=== PATIENT | female | born 1955 | race Caucasian/White ===

== ENCOUNTER 2018-05-07 12:45 | Inpatient (IN) | payer BC, MEDICARE ==
[~2018-05-07] VITALS: Ht 165.1 cm; Wt 60.3 kg
--- NOTE | 2018-05-07 12:47 | NUR ---
BIBRA78, DIZZY, BLURRED VISION, L FACE DROOP, L ARM AND LEG WEAKNESS LAST WELL KNOWN 12PM. DR. NINA AT . CODE STROKE ACTIVATED.
--- NOTE | 2018-05-07 12:53 | NUR ---
PT TO CT VIA [facility].
--- NOTE | 2018-05-07 12:54 | NUR ---
CALLED TELE STROKE, EXPECTING CALL FROM NEURO MD MORALES
[2018-05-07] MEDS ORDERED: IOHEXOL-350 100 ML VIAL IV ONE (12:55)
[2018-05-07] MEDS ORDERED: CT SWABBABLE VALVE TRANS SET 1 EA INFUS.SET MC ONE (12:55)
[2018-05-07] MEDS ORDERED: IV NS 0.9% 250 ML IV ONE (12:55)
--- NOTE | 2018-05-07 13:35 | NUR ---
PT BACK FROM CT. ABLE TO DRINK WATER W/O DIFFICULTY. AAOX3, SLURRED SPEECH, LT ARM & LT LEG DRIFTING. DENIES CP, SOB, DIZZINESS, HERNANDEZ, N/V AT THIS TIME. AWAITING NEUROLOGIST TO SPEAK TO PT VIA TELE STROKE ROBOT. PLACED ON CONCRETE INSPECTOR & WILL CONT TO MONITOR.
[2018-05-07 13:39] LABS: BASOPHILS # (AUTO) 0.1 /CMM (0.0-0.2); BASOPHILS % (AUTO) 1.3 % (0.0-2.0); EOSINOPHILS % (AUTO) 1.7 % (0.0-6.0); HEMATOCRIT 46 % (33-45); HEMOGLOBIN 15.5 g/dL (11.5-14.8); LYMPHOCYTES # (AUTO) 1.7 /CMM (0.8-4.8); LYMPHOCYTES % (AUTO) 20.3 % (20.0-44.0); MEAN CORPUSCULAR HGB CONC 34 g/dl (31.0-36.0); MEAN CORPUSCULAR VOLUME 100 fL (82-100); MONOCYTES # (AUTO) 0.7 /CMM (0.1-1.30); MONOCYTES % (AUTO) 8.3 % (2.0-12.0); NEUTROPHILS # (AUTO) 5.6 /CMM (1.8-8.9); NEUTROPHILS % (AUTO) 68.4 % (43.0-81.0); PLATELET COUNT (AUTO) 320 /CMM (150-450); RED BLOOD CELL COUNT(AUTO) 4.59 MIL/uL (4.0-5.2); WHITE BLOOD COUNT (AUTO) 8.2 K/uL (4.3-11.0)
[2018-05-07] MEDS ORDERED: hydrALAZINE HCL IV 20 MG VIAL ONE (13:44)
[2018-05-07 13:48] LABS: CALCIUM, SERUM 8.8 mg/dL (8.5-10.1); CARBON DIOXIDE 29 mmol/L (21-32); CHLORIDE 100 mmol/L (98-107); CREATININE 0.9 mg/dL (0.6-1.3); GLUCOSE 92 mg/dL (74-106); POTASSIUM 3.7 mmol/L (3.5-5.1); SODIUM SERUM 135 mmol/L (136-145); UREA NITROGEN, BLOOD 7 mg/dL (7-18)
--- NOTE | 2018-05-07 13:48 | NUR ---
MEDICATED FOR ELEVATED BP PER ERMD ORDER, PT MARCELLE WELL.
[2018-05-07] MEDS ORDERED: hydrALAZINE HCL IV 20 MG VIAL IV ONE (14:00)
[2018-05-07] MEDS ORDERED: ASPIRIN 325 MG TABLET PO ONE (14:00)
[2018-05-07 14:09] LABS: CHOLESTEROL 258 mg/dL (<200); HDL CHOLESTEROL 60 mg/dL (40-60); LDL 183 mg/dL (0-99); TRIGLYCERIDES 163 mg/dL (30-150)
[2018-05-07] MEDS ORDERED: ASPIRIN 325 MG TABLET ONE (14:21)
--- NOTE | 2018-05-07 14:24 | NUR ---
CALLED NURSING SUP REQUESTED TELE BED
--- NOTE | 2018-05-07 15:00 | NUR ---
PT ABLE TO LIFT LT ARM & HOLD IT FOR MORE THAT 10 SECS, DR. NINA WITNESSED IT.
--- NOTE | 2018-05-07 15:05 | NUR ---
ADMIT TO ROOM 118-2 DX HYPERTENSION ACCEPTING ASHLEY BARNETT NP
--- NOTE | 2018-05-07 15:32 | NUR ---
REPORT GIVEN TO ROSS ALBA FOR CONT OF CARE.
--- NOTE | 2018-05-07 16:00 | NUR ---
RN ADMITTING NOTES RECEIVED PATIENT FROM ED VIA ROXANE. BEDSIDE REPORT FROM ANTONIO. PT ALERT AND AGITATED REFUSING TO HAVE PICTURES AND PHOTOS TAKEN. CURSING AT STAFF . PATIENT REFUSING TO ANSWER QUESTIONS IN REGARDS AND NHISS QUESTIONS. ON VISUAL INSPECTION PAITENT SLURRING WORDS AND LEFT SIDED FACIAL DROP. STATES SHE FELL DOWN STAIRS A COUPLE OF DAYS AGO AND HIT HEAD THAT S WHY HER FACE IS LIKE THIS. SON AT BEDSIDE VERY CONCERNED AND HELPFUL WITH ANSWERING QUESTIONS. VS 98.1 HR 103 RR 20 O2 98% ON ROOM AIR BP 157/114. DR BARNETT NOTIFIED OF PATIENT ARRIVAL ON UNIT
--- NOTE | 2018-05-07 17:00 | NUR ---
SEED SORTER NOTES DR ENRIQUEZ AT BEDSIDE TO EVALUATE PATIENT. AWAITING ORDERS
[2018-05-07] MEDS ORDERED: ACETAMINOPHEN 325 MG TABLET PO PRN ×2 (17:30)
[2018-05-07] MEDS: BLOOD SUGAR DIAGNOSTIC 1 EACH STRIP IN SCH ×2 (17:30→21:36)
[2018-05-07] MEDS: ONDANSETRON HCL/PF 4 MG/2 ML VIAL IV PRN (18:09)
[2018-05-07] MEDS: MORPHINE SULFATE INJ 2 MG/ML DISP.SYRIN IV PRN ×2 (18:09→22:30)
[2018-05-07 18:25] LABS: THYROID STIMULATING HORMONE 122.23 uIU/mL (0.358-3.74)
[2018-05-07] MEDS: IV NS 0.9% 1,000 ML IV PRN (18:32)
--- NOTE | 2018-05-07 18:42 | NUR ---
FUR REPAIR INSPECTOR NOTES PT SCRATCHED LAC IV REMOVED CATH INTACT #18. REPLACED IV IN L HAND #20 GAUGE GOOD BLOOD RETURN NS RUNNING @75ML/HR MORPHINE 2 MG AND ZOFRAN GIVEN
--- NOTE | 2018-05-07 19:22 | NUR ---
MARINE DESIGNER CLOSING NOTES BEDSIDE REPORT GIVEN PT A/O X2-3 C/O PAIN TO NECK AND BACK MD AWARE . MORPHINE 2 MG GIVEN X1. NO S/S OR SYMPTOMS OF RESPIRATORY DISTRESS NOTED. PT SON AT BEDSIDE . PT REFUSES TO ANSWER QUESTIONS HISTORY VAGUE. SAFETY PRECAUTIONS IN PLACE BED IN LOW POSITION CALL LIGHT WITHIN REACH. WILL ENDORSE TO NOC
--- NOTE | 2018-05-07 19:40 | NUR ---
RN NOTES, RECEIVED PATIENT, BREATHING EVEN AND UNLABORED AT ROOM AIR, NO SOB/ACUTE DISTRESS NOTED AT THIS TIME, SON AT BEDSIDE, ENDORSED BY PRIOR NURSE THAT PATIENT PULLED IVS AND PULLED OUT BEDOYA CATHETER, UPON ASSESSMENT NOTED PATIENT RESTLESSNESS AND YELLING C/O PAIN, MORPHINE ADMINISTERED BY PRIOR NURSE EARLIER, PATIENT ASKING FOR PATCH FOR NECK PAIN, WILL CONTACT MD FOR NEW ORDERED, NOTED PATIENT WITH LEFT SIDED FACIAL DROP, AND RIGHT FACE BRUISE FROM S/P FALL, CALL LIGHT W/I REACH, S/R OF BED ORDERED, WILL CONTINUE TO MONITOR CLOSELY.
[2018-05-07 20:00] VITALS: BP 168/90
--- NOTE | 2018-05-07 20:00 | NUR ---
RN NOTES, CALLED MALI INDEPENDENT INSURANCE ADJUSTER TO REPORT PATIENT C/O NECK PAIN AND ASKING FOR TRANSDERMAL PATCH, AWAITING FIR CALL BACK.
--- NOTE | 2018-05-07 20:30 | NUR ---
RN NOTES, MALI GORE MAKER REPLIED WITH NEW ORDER FOR LIDOCAINE TD PATCH 5% 12HRS ON AND 12 HRS OFF, NOTED AND CARRIED OUT, WILL ADMINISTERED ORDERED.
[2018-05-07] MEDS: LIDOCAINE 5% (PATCH) 1 EA PATCH TP SCH (20:47)
[2018-05-07] MEDS: ENOXAPARIN SODIUM 40 MG/0.4 ML DISP.SYRIN SQ SCH (20:49)
[2018-05-07] MEDS: SIMVASTATIN 40 MG TABLET PO SCH (21:29)
[2018-05-08] VITALS: BP 158/92
[2018-05-08] MEDS: MORPHINE SULFATE INJ 2 MG/ML DISP.SYRIN IV PRN (02:47)
--- NOTE | 2018-05-08 04:25 | NUR ---
RN NOTES, SARAY SAMSON TUBE LANCER THAT PATIENT IS TRYING TO GET UP FROM BED WITHOUT ASSISTANCE, AND AGITATED THROUGHOUT THE NIGHT, TRYING TO PULL TUBINGS, MEDICATION IS BEING ADMINISTERED ORDERED, AND MD REPLIED WITH NEW ORDER FOR SITTER 1:1, NOTED AND CARRIED OUT.
[2018-05-08] MEDS: hydrALAZINE HCL IV 20 MG VIAL IV PRN ×2 (04:56→21:27)
--- NOTE | 2018-05-08 05:00 | NUR ---
RN NOTES, AFTER THE PRN ADMINISTRATION OF HYDRALAZINE, BP NOTED 170/100, WILL CONTINUE TO MONITOR CLOSELY.
[2018-05-08] MEDS: ONDANSETRON HCL/PF 4 MG/2 ML VIAL IV PRN (05:35)
[2018-05-08] MEDS: LIDOCAINE 5% (PATCH) 1 EA PATCH TP SCH (06:00)
--- NOTE | 2018-05-08 06:00 | NUR ---
RN NOTES, PATIENT REMOVED THE PATCH LAST NIGHT AND THREW IT AWAY, AND IS NOT BEING IN PLACED, PATIENT ASKING FOR ANOTHER PATCH, CALLED PHARMACY AND OK TO REMOVE ANOTHER PATCH FROM OMNICELL, WILL BE ON AT 0600 AND OFF AT 1800 TODAY.
--- NOTE | 2018-05-08 06:28 | NUR ---
RN NOTES, CALLED MD MALI CLASSROOM INSTRUCTIONAL AIDE TO REPORT THAT PATIENT CONTINUE C/O NECK PAIN, AND RECEIVED A NEW ORDER FOR DILAUDID 1MG Q4HRS PRN AND CT SCAN WITHOUT CONTRASTS FOR NECK, NOTED AND CARRIED OUT.
[2018-05-08 06:29] LABS: APPEARANCE,URINE CLEAR (CLEAR); BILIRUBIN,URINE NEGATIVE (NEGATIVE); BLOOD, URINE 3+ Ery/uL (NEGATIVE); COLOR,URINE YELLOW (YELLOW); KETONES,URINE NEGATIVE (NEGATIVE); LEUKOCYTE ESTERASE ,URINE NEGATIVE (NEGATIVE); NITRITE, URINE POSITIVE (NEGATIVE); PROTEIN,URINE NEGATIVE (NEGATIVE); UGLUCOSE NEGATIVE (NEGATIVE); UROBILINOGEN,URINE 0.2 EU/dL (0.2)
[2018-05-08 06:36] LABS: BACTERIA,URINE Many /HPF (None Seen); SQUAMOUS EPITHELIAL CELL,UR Few /HPF (None Seen); WBC,URINE NONE SEEN /HPF (0-3)
[2018-05-08] MEDS: HYDROMORPHONE 1 MG/1 ML DISP.SYRIN IV PRN (06:48)
--- NOTE | 2018-05-08 07:00 | NUR ---
RN NOTES, PATIENT CONTINUE YELLING AND RESTLESSNESS, SON AT BEDSIDE, DILAUDID ADMINISTERED ORDERED, WILL HAVE CT SCAN FOR NECK, AND 1:1 SITTER, CALL LIGHT W/I REACH, WILL ENDORSE CONTINUITY OF CARE TO ONCOMING NURSE. TO MONITOR CLOSELY.
[2018-05-08] MEDS: PANTOPRAZOLE 40 MG TABLET.DR PO SCH (07:30)
--- NOTE | 2018-05-08 07:30 | NUR ---
RN NOTES RECEIVED PATIENT IN BED, LETHARGIC, CONFUSION WITH COMBATIVE BEHAVIOR NOTED WHEN AWAKE, WITH BRUISE ON THE LEFT CHEEKS. BREATHING EVEN AND UNLABORED, ON ROOM AIR, NO SOB NOTED AT THIS TIME, SINUS RHYTHM ON THE MONITOR HR AT THE 80'S. SKIN IS SCALY DRY, IV ACCESS ON THE LEFT HAND G 20: IN PLACE AND INTACT, DRESSING CDI, PATENT ON FLUSHING. BEDOYA CATHETER IN PLACE, DRAINING WELL TO CLEAR YELLOW URINE. SITTER AND SON AT BED SIDE, SAFETY MEASURES OBSERVED AND MAINTAINED, BED LOW AND LOCK POSITION, HOB ELEVATED TO 30 DEGREE, CALL LIGHT PLACED WITHIN REACH, WILL CONTINUE TO MONITOR PATIENT
[2018-05-08 08:00] VITALS: BP 153/83
[2018-05-08 08:40] LABS: BASOPHILS # (AUTO) 0.1 /CMM (0.0-0.2); BASOPHILS % (AUTO) 0.7 % (0.0-2.0); EOSINOPHILS % (AUTO) 0.4 % (0.0-6.0); HEMATOCRIT 45 % (33-45); HEMOGLOBIN 15.2 g/dL (11.5-14.8); LYMPHOCYTES # (AUTO) 1.5 /CMM (0.8-4.8); LYMPHOCYTES % (AUTO) 10.9 % (20.0-44.0); MEAN CORPUSCULAR HGB CONC 34 g/dl (31.0-36.0); MEAN CORPUSCULAR VOLUME 100 fL (82-100); MONOCYTES # (AUTO) 1.1 /CMM (0.1-1.30); MONOCYTES % (AUTO) 8.1 % (2.0-12.0); NEUTROPHILS % (AUTO) 79.9 % (43.0-81.0); PLATELET COUNT (AUTO) 337 /CMM (150-450); RED BLOOD CELL COUNT(AUTO) 4.49 MIL/uL (4.0-5.2); WHITE BLOOD COUNT (AUTO) 13.7 K/uL (4.3-11.0)
[2018-05-08] MEDS: IV NS 0.9% 1,000 ML IV PRN ×2 (08:42→21:41)
[2018-05-08 08:49] LABS: CALCIUM, SERUM 8.9 mg/dL (8.5-10.1); CREATININE 0.9 mg/dL (0.6-1.3); POTASSIUM 3.5 mmol/L (3.5-5.1)
--- NOTE | 2018-05-08 08:56 | NUR ---
PT UNABLE TO HOLD STILL FOR CT NECK, PER RN. RN WILL CALL BACK WHEN PT IS READY.
[2018-05-08] MEDS: ASPIRIN EC 325 MG TABLET.DR PO SCH (09:00)
--- NOTE | 2018-05-08 09:00 | NUR ---
RN NOTES PATIENT WAS NOT GIVEN MEDICATION AND WAS NOT FEED NEITHER DUE TO PATIENT LETHARGIC, S/P DILAUDID ADMINISTRATION FROM THE PHOTONICS ENGINEERING TECHNICIAN NURSE. PATIENT NOT FEED WELL FOR ASPIRATION PRECAUTION
[2018-05-08] MEDS: BLOOD SUGAR DIAGNOSTIC 1 EACH STRIP IN SCH ×4 (09:49→21:07)
[2018-05-08] MEDS ORDERED: LEVOTHYROXINE INJ 100 MCG VIAL IV ONE (11:00)
[2018-05-08] MEDS ORDERED: LORAZEPAM INJ 2 MG/ML VIAL IV PRN (11:00)
--- NOTE | 2018-05-08 13:00 | NUR ---
RN NOTES OBTAINED ORDER FOR BILATERAL SOFT RESTRAINTS. ORDER NOTED AND CARRIED WILL MONITOR PATIENT CLOSELY
--- NOTE | 2018-05-08 13:00 | NUR ---
RN NOTES PATIENT FULLY AWAKE AT THIS TIME, WAS TRYING TO GET OUT OF BED AND WAS TRYING TO PULL OUT LINES. WILL INFORMED MD Addendum: 05/10/18 at 1810 by HANANE LÓPEZ RN LATE ENTRY: RADIOLOGY DEPARTMENT CALLED FOR PATIENT SCHEDULED MRI OF THE NECK. BUT PATIENT RESTLESS AT THIS TIME AND WAS NOT ABLE TO STAY STILL
[2018-05-08 16:00] VITALS: BP 140/80
--- NOTE | 2018-05-08 17:00 | NUR ---
RN NOTES PATIENT NOT ABLE TOTAKE MEDICINE DUE TO PATIENT DEEPLY ASLEEP S/P PRN ATIVAN 1MG IV ADMINISTRATION FOR RESTLESSNESS.
--- NOTE | 2018-05-08 19:27 | NUR ---
RN NOTES ENDORSED PATIENT FOR CONTINUITY OF CARE. NO0 ACUTE CHANGES WITHIN THE SHIFT. ALL NURSING NEEDS ATTENDED AND MET. SAFETY MEASURES IN PLACE AT ALL TIMES. SITTER AT BED SIDE.
--- NOTE | 2018-05-08 19:55 | NUR ---
RN Notes Seen by Dr Branch, neurologist, patient is very uncooperative, restless and agitated in bed. New order received, Seroquel 25 mg tab po every 12 hours PRN for agitation, noted and carried out. Will continue to monitor patient.
[2018-05-08] MEDS: SIMVASTATIN 40 MG TABLET PO SCH (21:26)
[2018-05-08] MEDS: ENOXAPARIN SODIUM 40 MG/0.4 ML DISP.SYRIN SQ SCH (21:26)
--- NOTE | 2018-05-08 21:27 | NUR ---
RN Notes Patient BP was noted elevated even patient is calm and quiet, BP 194/115, HR 119/min. Hydralazine 20 mg IVP given. Will continue to monitor pt.
--- NOTE | 2018-05-08 22:30 | NUR ---
RN Notes BP rechecked 158/92, HR 106/min. Will continue to monitor patient.
[2018-05-08] MEDS: QUETIAPINE FUMARATE 25 MG TABLET PO PRN (22:55)
--- NOTE | 2018-05-08 22:55 | NUR ---
RN Notes Patient is very restless and agitated at this time, hitting the sitter and pulling lines. Seroquel 25 mg tab given po and tolerated well. Will continue to monitor patient.
[2018-05-09] MEDS: BLOOD SUGAR DIAGNOSTIC 1 EACH STRIP IN SCH ×4 (06:31→21:38)
[2018-05-09 06:46] LABS: BASOPHILS # (AUTO) 0.1 /CMM (0.0-0.2); BASOPHILS % (AUTO) 0.4 % (0.0-2.0); EOSINOPHILS % (AUTO) 0.3 % (0.0-6.0); HEMATOCRIT 45 % (33-45); HEMOGLOBIN 15.7 g/dL (11.5-14.8); LYMPHOCYTES # (AUTO) 1.5 /CMM (0.8-4.8); LYMPHOCYTES % (AUTO) 10.8 % (20.0-44.0); MEAN CORPUSCULAR HGB CONC 35 g/dl (31.0-36.0); MEAN CORPUSCULAR VOLUME 98 fL (82-100); MONOCYTES # (AUTO) 1.1 /CMM (0.1-1.30); MONOCYTES % (AUTO) 7.9 % (2.0-12.0); NEUTROPHILS # (AUTO) 11.4 /CMM (1.8-8.9); NEUTROPHILS % (AUTO) 80.6 % (43.0-81.0); PLATELET COUNT (AUTO) 310 /CMM (150-450); RED BLOOD CELL COUNT(AUTO) 4.59 MIL/uL (4.0-5.2); WHITE BLOOD COUNT (AUTO) 14.2 K/uL (4.3-11.0)
[2018-05-09 06:49] LABS: ALBUMIN 4.1 g/dL (3.4-5.0); BILIRUBIN,TOTAL 0.7 mg/dL (0.2-1.0); CALCIUM, SERUM 8.7 mg/dL (8.5-10.1); CREATININE 0.7 mg/dL (0.6-1.3); MAGNESIUM 2.3 mg/dL (1.8-2.4); PHOSPHORUS 3.1 mg/dL (2.5-4.9); POTASSIUM 3.2 mmol/L (3.5-5.1); TOTAL PROTEIN, SERUM 7.5 g/dL (6.4-8.2)
--- NOTE | 2018-05-09 07:00 | NUR ---
MS RN OPENING NOTES RECEIVED PT IN BED, HOB ELEVATED 30 DEG. SITTER AT BEDSIDE. PT AGITATED, CRYING OUT. ON ROOM AIR. ON BEDOYA CATH DRAINING URINE WITH BLOOD; PER PM NURSE PT PULLS AT CATHETER. NS INFUSING THRU IV LEFT HAND. BED IN LOCKED/LOWEST POSITION. CALL LIGHT IN REACH. WILL CONT TO MONITOR.
[2018-05-09 07:25] LABS: THYROID STIMULATING HORMONE 107.681 uIU/mL (0.358-3.74)
--- NOTE | 2018-05-09 07:39 | NUR ---
RN Notes Patient restlessness and agitation well controlled with Seroquel. Per Dr Branch, as much as possible refrain from giving Ativan, dilaudid or morphine to the patient. Current diet tolerated well, no signs of aspiration noted. Safety measures and fall precaution observed, with sitter at bedside. Endorsed to morning RN for continuity of care.
[2018-05-09] MEDS: ASPIRIN EC 325 MG TABLET.DR PO SCH (08:44)
[2018-05-09] MEDS: HYDROMORPHONE 1 MG/1 ML DISP.SYRIN IV PRN ×2 (08:44→21:39)
[2018-05-09] MEDS: PANTOPRAZOLE 40 MG TABLET.DR PO SCH (08:44)
[2018-05-09] MEDS: LEVOTHYROXINE INJ 100 MCG VIAL IV SCH (08:58)
[2018-05-09] MEDS: IV NS 0.9% 1,000 ML IV PRN (11:30)
[2018-05-09 12:00] VITALS: BP 181/109
[2018-05-09] MEDS: hydrALAZINE HCL IV 20 MG VIAL IV PRN (12:19)
[2018-05-09] MEDS: POTASSIUM CHLORIDE 20 MEQ TAB.PRT.SR PO SCH ×2 (12:57→13:19)
[2018-05-09] MEDS: QUETIAPINE FUMARATE 25 MG TABLET PO PRN (13:04)
--- NOTE | 2018-05-09 14:39 | NUR ---
Social service consult requested by case fitter Christa for possible homelessness. Pt. is a 62 year old female who was admitted to [facility] hypertension. SW attempted to meet with pt. bedside, however pt. was asleep. Pt's son Rito was bedside. Rito is her emergency contact and can be reached at . According to Rito, pt. lives in a house on [address] [place] with her late mother's boyfriend. Per Rito, pt. is unable to care for self. Pt. was able to walk independently to a certain extent prior to hospitalization. DAVID informed Rito per case fitter Shanika, pt. has been accepted to [facility]. Rito seemed to be relieved that pt. will be going to a SNF and not home. DAVID informed Rito she will have case fitter Shanika contact him regarding further placement details.
--- NOTE | 2018-05-09 15:00 | NUR ---
MS RN NOTES RADIOLOGY TECHS CAME TO TRANSPORT PT TO CT. PT IS UNCOOPERATIVE AND UNABLE TO FOLLOW COMMANDS. PT IS NOT ABLE TO KEEP STILL DURING CT NECK PROCEDURE. WILL CONT TO MONITOR.
--- NOTE | 2018-05-09 19:05 | NUR ---
MS RN END OF SHIFT NOTES PT IN BED, RESTING, C/O PAIN IN NECK, REQUESTING LIDOCAINE PATCH. REFUSES PAIN MEDS, STATES: "IT'S MAKING ME LOOPY." BED IN LOCKED/LOWEST POSITION. CALL LIGHT IN REACH. SITTER AT BEDSIDE. WILL ENDORSE TO NOC NURSE FOR SLIME.
[2018-05-09] MEDS: ENOXAPARIN SODIUM 40 MG/0.4 ML DISP.SYRIN SQ SCH (21:17)
[2018-05-09] MEDS: SIMVASTATIN 40 MG TABLET PO SCH (21:18)
[2018-05-09] MEDS: LIDOCAINE 5% (PATCH) 1 EA PATCH TP SCH (21:18)
[2018-05-09 22:00] VITALS: BP 160/98
[2018-05-10] MEDS: QUETIAPINE FUMARATE 25 MG TABLET PO PRN (03:06)
[2018-05-10] MEDS: HYDROMORPHONE 1 MG/1 ML DISP.SYRIN IV PRN ×4 (03:12→22:35)
[2018-05-10 04:00] VITALS: BP 149/88
[2018-05-10 06:42] LABS: CREATININE 0.7 mg/dL (0.6-1.3); POTASSIUM 3.4 mmol/L (3.5-5.1)
[2018-05-10] MEDS: IV NS 0.9% 1,000 ML IV PRN (06:50)
--- NOTE | 2018-05-10 07:25 | NUR ---
RN MS OPENING NOTES RECEIVED REPORT FROM PRODUCTION MACHINE SHOP SUPERVISOR RN. PT SEEMS AGITATED AND STATES SHE WANTS TO GET OUT OF BED. SITTER IS PRESENT AT BEDSIDE. BED IS IN LOWEST AND LOCKED POSITION. CALL LIGHT WITHIN REACH. PT COMPLAINS OF NECK PAIN AND REQUESTED PAIN MEDICATION. PT IS A&O X 2. WILL CONTINUE TO MONITOR.
[2018-05-10] MEDS: hydrALAZINE HCL IV 20 MG VIAL IV PRN (07:55)
[2018-05-10] MEDS: PANTOPRAZOLE 40 MG TABLET.DR PO SCH (07:55)
[2018-05-10] MEDS: LEVOTHYROXINE INJ 100 MCG VIAL IV SCH (07:56)
[2018-05-10] MEDS: BLOOD SUGAR DIAGNOSTIC 1 EACH STRIP IN SCH ×4 (07:57→21:30)
[2018-05-10 08:00] VITALS: BP 184/106
[2018-05-10 08:09] LABS: T3, FREE 0.9 pg/mL (2.0-4.4)
[2018-05-10] MEDS: ASPIRIN EC 325 MG TABLET.DR PO SCH (09:00)
[2018-05-10] MEDS ORDERED: POTASSIUM CHLORIDE 20 MEQ TAB.PRT.SR PO SCH (10:30)
--- NOTE | 2018-05-10 12:37 | NUR ---
RN MS NOTES PT REFUSING ACCU CHECK SAYS SHE JUST WANTS TO REST. PT ALSO REFUSED POTASSIUM MEDICATION IN THE AM STATING SHE DOES NOT WANT IT.
[2018-05-10 16:00] VITALS: BP 116/76
[2018-05-10] MEDS ORDERED: HALOPERIDOL LACTATE INJ 5 MG/ML VIAL IM ONE (17:00)
--- NOTE | 2018-05-10 17:02 | NUR ---
PATIENT NIHSS SCALE 7,UNABLE TO COMPLETE ASSESSMENT PATIENT UNCOOPERATIVE,AGITATED,WITH LEFT SIDE UPPER ARM AND LEFT LOWER LEG UNABLE TO MOVE.ASHLEY MADE AWARE WILL MEDICATE W/ HALDOL PRIOR TO CT.
--- NOTE | 2018-05-10 17:07 | NUR ---
PATIENT REFUSING PO MEDS,SPITTING.
[2018-05-10 17:40] VITALS: BP 149/88
[2018-05-10] MEDS ORDERED: IV NS 0.9% 1,000 ML BAG IV PRN (18:30)
--- NOTE | 2018-05-10 18:38 | NUR ---
RN NOTES GRINDING MACHINE OPERATOR PORTABLE AND CODE STROKE CALLED AT 1740. SPOKE TO TELESTROKE MD BRE ANTONIO WHO ADVISED THAT PT IS NOT A TPA CANDIDATE. ADVISED TO LIE THE PT FLAT AND GIVE BOLUS. TITLE CURATIVE SPECIALIST ASHLEY BARNETT NOTIFIED OF THE CODE STROKE. SPOKE WITH TITLE CURATIVE SPECIALIST AND RECEIVED NEW PARAMETERS FOR HYDRALAZINE. PT PRESENTED WITH LEFT SIDE COMPLETELY FLACCID. NEUROLOGIST WAS CALLED AT [address]15 DR. MERCHANT LEFT A MESSAGE ON [employer] WITH THE NUMBER AT .
--- NOTE | 2018-05-10 19:43 | NUR ---
RN ELISHA NOTES GAVE REPORT TO OCULAR CARE AIDE PSYCHOLOGIST EXPERIMENTAL. PT IS SUPINE WITH IV RUNNING AT 75ML/HR. PT IS A&OX2. WITH RIGHT HAND RESTRAINED. PT BEDOYA DRAINING TO GRAVITY. ENDORSED CONTINUITY OF CARE TO OCULAR CARE AIDE PSYCHOLOGIST EXPERIMENTAL.
[2018-05-10 20:00] VITALS: BP 181/97
[2018-05-10 20:02] LABS: BASOPHILS # (AUTO) 0.1 /CMM (0.0-0.2); BASOPHILS % (AUTO) 0.4 % (0.0-2.0); EOSINOPHILS % (AUTO) 0.6 % (0.0-6.0); HEMATOCRIT 40 % (33-45); HEMOGLOBIN 13.4 g/dL (11.5-14.8); LYMPHOCYTES # (AUTO) 1.4 /CMM (0.8-4.8); LYMPHOCYTES % (AUTO) 9.6 % (20.0-44.0); MEAN CORPUSCULAR HGB CONC 33 g/dl (31.0-36.0); MEAN CORPUSCULAR VOLUME 101 fL (82-100); MONOCYTES # (AUTO) 1.4 /CMM (0.1-1.30); MONOCYTES % (AUTO) 9.4 % (2.0-12.0); NEUTROPHILS # (AUTO) 11.7 /CMM (1.8-8.9); PLATELET COUNT (AUTO) 296 /CMM (150-450); RED BLOOD CELL COUNT(AUTO) 4.01 MIL/uL (4.0-5.2); WHITE BLOOD COUNT (AUTO) 14.7 K/uL (4.3-11.0)
--- NOTE | 2018-05-10 20:06 | NUR ---
TELE-TD/CAR WASH MANAGER PT MOVED TO ROOM 103. CLOSER TO THE NURSES STATION FOR CLOSER MONITORING. PT IS NOT COOPERATING WITH STOKE ASSESSMENTS. PT IS CONFUSED AND UNABLE TO PROCESS HER CURRENT SITUATION. I CAN ASSESS THAT THE PT HAS MULTIPLE DEFICITS AT THIS TIME INCLUDING LEFT SIDE FACIAL DROOP, SLURRED SPEECH AND LEFT SIDED HEMIPARESIS. I WILL CONTINUE TO MONITOR THE PT CLOSELY FROM THE BEDSIDE.
[2018-05-10 20:10] LABS: CALCIUM, SERUM 8.2 mg/dL (8.5-10.1); CREATININE 0.6 mg/dL (0.6-1.3); POTASSIUM 3.7 mmol/L (3.5-5.1)
[2018-05-10 20:13] LABS: ALBUMIN 3.9 g/dL (3.4-5.0); BILIRUBIN,TOTAL 0.7 mg/dL (0.2-1.0)
[2018-05-10] MEDS: LIDOCAINE 5% (PATCH) 1 EA PATCH TP SCH (20:30)
[2018-05-10] MEDS: ENOXAPARIN SODIUM 40 MG/0.4 ML DISP.SYRIN SQ SCH (21:13)
[2018-05-10] MEDS: SIMVASTATIN 40 MG TABLET PO SCH (21:30)
[2018-05-11 00:01] VITALS: BP 160/76
[2018-05-11] MEDS: IV NS 0.9% 1,000 ML IV PRN (01:07)
[2018-05-11] MEDS: HYDROMORPHONE 1 MG/1 ML DISP.SYRIN IV PRN ×2 (02:40→06:40)
[2018-05-11 04:01] VITALS: BP 175/83
[2018-05-11 06:22] LABS: BASOPHILS # (AUTO) 0.1 /CMM (0.0-0.2); BASOPHILS % (AUTO) 0.5 % (0.0-2.0); EOSINOPHILS % (AUTO) 0.6 % (0.0-6.0); HEMATOCRIT 40 % (33-45); HEMOGLOBIN 13.4 g/dL (11.5-14.8); LYMPHOCYTES # (AUTO) 1.1 /CMM (0.8-4.8); LYMPHOCYTES % (AUTO) 8.7 % (20.0-44.0); MEAN CORPUSCULAR HGB CONC 34 g/dl (31.0-36.0); MEAN CORPUSCULAR VOLUME 99 fL (82-100); MONOCYTES # (AUTO) 1.2 /CMM (0.1-1.30); MONOCYTES % (AUTO) 9.8 % (2.0-12.0); NEUTROPHILS # (AUTO) 9.7 /CMM (1.8-8.9); NEUTROPHILS % (AUTO) 80.4 % (43.0-81.0); PLATELET COUNT (AUTO) 267 /CMM (150-450); RED BLOOD CELL COUNT(AUTO) 4.01 MIL/uL (4.0-5.2); WHITE BLOOD COUNT (AUTO) 12.1 K/uL (4.3-11.0)
[2018-05-11] MEDS: BLOOD SUGAR DIAGNOSTIC 1 EACH STRIP IN SCH ×4 (06:34→21:56)
[2018-05-11 06:47] LABS: THYROID STIMULATING HORMONE 88.217 uIU/mL (0.358-3.74)
[2018-05-11 06:51] LABS: CALCIUM, SERUM 8.2 mg/dL (8.5-10.1); CREATININE 0.5 mg/dL (0.6-1.3); PHOSPHORUS 2.5 mg/dL (2.5-4.9); POTASSIUM 3.1 mmol/L (3.5-5.1)
--- NOTE | 2018-05-11 07:25 | NUR ---
RN ELISHA NOTES RECEIVED REPORT FROM CORRUGATOR CIGARETTE PAPER TESTER. PT IS SUPINE WITH BILATERAL RESTRAINTS. PT IS PRESENT WITH LEFT SIDED FACIAL DROP AND LEFT EXTREMITIES FLACCID. PT APPEARS TO BE RESTLESS. SITTER IS PRESENT WITH PT. PT IS S/P CODE STROKE WILL CONTINUE TO MONITOR.
[2018-05-11] MEDS: PANTOPRAZOLE 40 MG TABLET.DR PO SCH (07:30)
[2018-05-11 08:00] VITALS: BP 195/114
[2018-05-11] MEDS: LEVOTHYROXINE INJ 100 MCG VIAL IV SCH (08:06)
[2018-05-11] MEDS: ASPIRIN EC 325 MG TABLET.DR PO SCH (09:00)
[2018-05-11] MEDS: QUETIAPINE FUMARATE 25 MG TABLET PO PRN (09:17)
[2018-05-11] MEDS ORDERED: POTASSIUM CHLORIDE 20 MEQ TAB.PRT.SR PO SCH (11:30)
[2018-05-11 12:00] VITALS: BP 173/108
[2018-05-11] MEDS: Potassium Chloride 10 MEQ, LIDOCAINE HCL/PF 1% 1 ML in IV D5W 50 ML IV SCH ×4 (12:48→16:57)
--- NOTE | 2018-05-11 13:28 | NUR ---
ROSS LAWTONU NOTES PER PAULA DANIEL TO GIVE FOOD. Addendum: 05/11/18 at 1332 by JORGE FLOYD RN PT HAS PERIODS OF CONFUSION. ABLE TO SWALLOW SMALL AMOUNT OF APPLE SAUCE.
[2018-05-11 16:00] VITALS: BP 192/110
--- NOTE | 2018-05-11 18:56 | NUR ---
RN ELISHA NOTES PT'S SON CAME TO VISIT WITH GIRLFRIEND PER SON THIS IS PT'S BASELINE. PT'S SON REQUESTED TO BE UPDATED WITH ANY NEW DEVELOPMENTS.
--- NOTE | 2018-05-11 18:58 | NUR ---
RN ELISHA CLOSING NOTES PT IS LAYING SUPINE IN BED WITH SITTER PRESENT. PT HAS RIGHT RESTRAINT ON. PT IS A&OX2. NO SOB OF NOTED AT PRESENT TIME. BEDOYA IS DRAINING TO GRAVITY. IV LINE IS RUNNING AT 75ML/HR. BED IS LOCKED AND IN LOWEST POSITION. WILL ENDORSE CONTINUITY OF CARE TO HEAD GREENSKEEPER RN.
--- NOTE | 2018-05-11 19:10 | NUR ---
TD/RN INITIAL NOTES RECEIVED PT FLAT ON BED, ALERT, VERBALLY RESPONSIVE, APPEARS CONFUSED. ON 1:1 SITTER. SR ON TELE. ON ROOM AIR, NO SOB NOTED. NOTED WITH LEFT SIDE HEMIPARESIS. NOTED SOFT RIGHT WRIST RESTRAINT, SKIN AND CIRCULATION CHECK DONE. WITH ONGOING IVF NS AT 75 MLS/HR INFUSING WELL ON RAC G20 IV. RFA G22 HEPLOCK INTACT AND PATENT. FC INTACT AND IN PLACED, DRAINING YELLOW COLORED URINE BY GRAVITY. SAFETY MEASURES AND ASPIRATION PRECAUTION IN PLACED. WILL CONT TO MONITOR
[2018-05-11 20:00] VITALS: BP 155/101
[2018-05-11] MEDS: LIDOCAINE 5% (PATCH) 1 EA PATCH TP SCH (21:43)
[2018-05-11] MEDS: ENOXAPARIN SODIUM 40 MG/0.4 ML DISP.SYRIN SQ SCH (21:43)
[2018-05-11] MEDS: SULFAMETH/TRIMETH 800/160 MG 1 UDTAB TABLET PO SCH (21:44)
[2018-05-11] MEDS: SIMVASTATIN 40 MG TABLET PO SCH (21:46)
[2018-05-12] VITALS: BP 191/118
[2018-05-12] MEDS: IV NS 0.9% 1,000 ML IV PRN ×2 (02:56→23:16)
[2018-05-12 04:00] VITALS: BP 194/93
--- NOTE | 2018-05-12 06:52 | NUR ---
RN NOTES PT IN STABLE CONDITION. NO ACUTE CHANGES THROUGHOUT SHIFT. SAFETY MEASURES OBSERVED AT ALL TIMES. ALL NEEDS ANTICIPATED. ENDORSED TO AM SHIFT RN FOR SLIME
[2018-05-12 07:11] LABS: BASOPHILS % (AUTO) 0.4 % (0.0-2.0); EOSINOPHILS % (AUTO) 0.5 % (0.0-6.0); HEMATOCRIT 43 % (33-45); HEMOGLOBIN 14.5 g/dL (11.5-14.8); LYMPHOCYTES # (AUTO) 0.9 /CMM (0.8-4.8); MEAN CORPUSCULAR HGB CONC 34 g/dl (31.0-36.0); MEAN CORPUSCULAR VOLUME 99 fL (82-100); MONOCYTES # (AUTO) 1.2 /CMM (0.1-1.30); MONOCYTES % (AUTO) 10.8 % (2.0-12.0); NEUTROPHILS # (AUTO) 8.8 /CMM (1.8-8.9); NEUTROPHILS % (AUTO) 80.3 % (43.0-81.0); PLATELET COUNT (AUTO) 275 /CMM (150-450); RED BLOOD CELL COUNT(AUTO) 4.31 MIL/uL (4.0-5.2); WHITE BLOOD COUNT (AUTO) 10.9 K/uL (4.3-11.0)
[2018-05-12 07:20] LABS: CALCIUM, SERUM 8.5 mg/dL (8.5-10.1); CREATININE 0.6 mg/dL (0.6-1.3); MAGNESIUM 2.1 mg/dL (1.8-2.4); PHOSPHORUS 2.6 mg/dL (2.5-4.9); POTASSIUM 3.2 mmol/L (3.5-5.1)
[2018-05-12 07:26] LABS: THYROID STIMULATING HORMONE 62.7 uIU/mL (0.358-3.74)
--- NOTE | 2018-05-12 07:30 | NUR ---
RN NOTES RECEIVED PATIENT IN BED, ALERT AND ORIENTED X1 WITH EPISODES OF CONFUSION, WITH LEFT SIDE FACIAL DROOP, ABLE TO COMMUNICATE BUT SPEECH IS SLIGHTLY SLURRED. BREATHING EVEN AND UNLABORED, ON ROOM AIR, NO SOB NOTED AT THIS TIME, SINUS RHYTHM ON THE MONITOR HR AT THE 80'S. SKIN IS SCALY DRY, IV ACCESS ON THE RAC: IN PLACE AND INTACT, DRESSING CDI, PATENT ON FLUSHING. PATIENT BEGUN UNCOOPERATIVE LATER ON DURING STROKE ASSESSMENT BUT WAS NOTICE WITH LEFT HAND UNABLE TO SQUEEZE MY HAND, UPPER EXTREMITY AND LOWER EXTREMITY DRIFT IMMEDIATELY, WHEN ASK IF SHE CAN FEEL ANY SENSATION "VERY LITTLE. IT'S EITHER THE ARM IS BROKEN OR SOMETHING IS WRONG". BEDOYA CATHETER IN PLACE, DRAINING WELL TO YELLOW URINE. 1:1 SITTER BED SIDE, SAFETY MEASURES OBSERVED AND MAINTAINED, BED LOW AND LOCK POSITION, CALL LIGHT PLACED WITHIN REACH, WILL CONTINUE TO MONITOR PATIENT CLOSELY
[2018-05-12 08:00] VITALS: BP_SYST 165; BP_SYST 185; BP_DIAS 111
[2018-05-12 08:06] LABS: T3, FREE 0.9 pg/mL (2.0-4.4)
[2018-05-12] MEDS: BLOOD SUGAR DIAGNOSTIC 1 EACH STRIP IN SCH ×4 (09:04→22:00)
[2018-05-12] MEDS: PANTOPRAZOLE 40 MG TABLET.DR PO SCH (09:05)
[2018-05-12] MEDS: SULFAMETH/TRIMETH 800/160 MG 1 UDTAB TABLET PO SCH ×2 (09:05→21:28)
[2018-05-12] MEDS: LEVOTHYROXINE INJ 100 MCG VIAL IV SCH (09:05)
[2018-05-12] MEDS: ASPIRIN EC 325 MG TABLET.DR PO SCH (09:08)
--- NOTE | 2018-05-12 10:30 | NUR ---
RN NOTES PATIENT WITH ORDER FOR POTASSIUM CHLORIDE 20 MEQ PO, WAS OFFERED TO THE PATIENT BUT REFUSING TO TAKE MEDICATION AT THIS TIME. ALSO TRYING TO GET OUT OF BED KEEP ON VERBALIZING " I WANT TO GO TO THE BATH ROOM" REORIENTED PATIENT THAT SHE HAS BEDOYA CATHETER AND DIAPER ON. SITTER AT BED SIDE. WILL INFORM AND RETRY TO ADMINISTER MEDICATION IN A LITTLE LATER
[2018-05-12] MEDS: POTASSIUM CHLORIDE 20 MEQ TAB.PRT.SR PO SCH ×3 (10:35→11:50)
[2018-05-12 12:00] VITALS: BP 189/101
[2018-05-12 18:00] VITALS: BP 186/111
--- NOTE | 2018-05-12 18:00 | NUR ---
RN NOTES ENDORSED PATIENT FOR CONTINUITY OF CARE. NO ACUTE CHANGES WITHIN THE SHIFT. NOT ON ANY FORM OF DISTRESS. ALL NURSING NEEDAS ATTENDED AND MET/ SAFETY MEASURES IN PLACE AT ALL TIMES. SITTER AT BEDSIDE. CALL LIGHT WITHIN EASY REACH
[2018-05-12 20:00] VITALS: BP 175/97
[2018-05-12] MEDS: SIMVASTATIN 40 MG TABLET PO SCH (21:28)
[2018-05-12] MEDS: ENOXAPARIN SODIUM 40 MG/0.4 ML DISP.SYRIN SQ SCH (21:30)
[2018-05-12] MEDS: LIDOCAINE 5% (PATCH) 1 EA PATCH TP SCH (21:38)
[2018-05-13] VITALS: BP 190/110
[2018-05-13 04:00] VITALS: BP 179/113
[2018-05-13 06:33] LABS: BASOPHILS # (AUTO) 0.1 /CMM (0.0-0.2); BASOPHILS % (AUTO) 0.6 % (0.0-2.0); EOSINOPHILS % (AUTO) 0.8 % (0.0-6.0); HEMATOCRIT 41 % (33-45); HEMOGLOBIN 13.8 g/dL (11.5-14.8); LYMPHOCYTES # (AUTO) 1.1 /CMM (0.8-4.8); MEAN CORPUSCULAR HGB CONC 34 g/dl (31.0-36.0); MEAN CORPUSCULAR VOLUME 99 fL (82-100); MONOCYTES # (AUTO) 1.3 /CMM (0.1-1.30); MONOCYTES % (AUTO) 12.1 % (2.0-12.0); NEUTROPHILS # (AUTO) 8.3 /CMM (1.8-8.9); NEUTROPHILS % (AUTO) 76.5 % (43.0-81.0); PLATELET COUNT (AUTO) 272 /CMM (150-450); RED BLOOD CELL COUNT(AUTO) 4.09 MIL/uL (4.0-5.2); WHITE BLOOD COUNT (AUTO) 10.8 K/uL (4.3-11.0)
[2018-05-13 06:53] LABS: CALCIUM, SERUM 8.5 mg/dL (8.5-10.1); CREATININE 0.6 mg/dL (0.6-1.3); MAGNESIUM 2.3 mg/dL (1.8-2.4); PHOSPHORUS 2.8 mg/dL (2.5-4.9); POTASSIUM 3.5 mmol/L (3.5-5.1)
[2018-05-13 07:04] LABS: THYROID STIMULATING HORMONE 66.514 uIU/mL (0.358-3.74)
[2018-05-13 08:00] VITALS: BP 161/98
[2018-05-13] MEDS: LEVOTHYROXINE INJ 100 MCG VIAL IV SCH (08:07)
[2018-05-13] MEDS: BLOOD SUGAR DIAGNOSTIC 1 EACH STRIP IN SCH ×3 (08:07→17:30)
[2018-05-13] MEDS: SULFAMETH/TRIMETH 800/160 MG 1 UDTAB TABLET PO SCH (08:07)
[2018-05-13] MEDS: ASPIRIN EC 325 MG TABLET.DR PO SCH (08:07)
[2018-05-13] MEDS: PANTOPRAZOLE 40 MG TABLET.DR PO SCH (08:08)
--- NOTE | 2018-05-13 09:00 | NUR ---
rn notes received patient calmly sleeping. not on any form of distress, breathing even and unlabored, on room air sating well. patient kept sleeping since patient has been restless from the past few days. patient sinus rhythm on the monitor, hr at 91bpm. iv line: lorenzo midline and r forearm g [address] and intact, dressings cdi, ns running at 7cc/hr, 1:1 sitter in bedside, safety measures observed and maintained, siderails kept padded, call light placed within reach, will continue to monitor patient closely
--- NOTE | 2018-05-13 09:01 | NUR ---
WOUND CARE CONSULT: PT PRESENTS WITH VERY DRY SKIN AND MULTIPLE DRY ABRASIONS, PRESENT ON ADMISSION. RASH/SKIN CONDITION NOTED TO BACK AND ARMS. DEFER TO MD FOR RASH. BEDOYA CATH NOTED. RECOMMENDATIONS MADE FOR SKIN PROTECTION. DISCUSSED WITH NURSING STAFF. WILL SEE PRN. WILL SEE PRN. RECOMMEND LEATHA ISOFLEX LOW AIRLOSS BED. CURRENT TERRI SCOTE IS 12. MD IN AGREEMENT WITH PLAN OF CARE.
[2018-05-13] MEDS ORDERED: Z GUARD REMEDY 2 OZ OINT TP PRN (09:30)
[2018-05-13] MEDS ORDERED: MINERAL OIL/PETROLATUM,WHITE 120 GM JAR TP PRN (09:30)
[2018-05-13 12:00] VITALS: BP 168/111
[2018-05-13] MEDS ORDERED: SULF1TAB3 PO (13:40)
[2018-05-13] MEDS ORDERED: SIMV40TA5 PO (13:40)
[2018-05-13] MEDS ORDERED: QUET25TA PO (13:40)
[2018-05-13] MEDS ORDERED: ASPI-869 PO (13:40)
[2018-05-13] MEDS ORDERED: LEVO125T8 PO (13:40)
[2018-05-13] MEDS: IV NS 0.9% 1,000 ML IV PRN (13:42)
--- NOTE | 2018-05-13 13:43 | NUR ---
RN NOTES SEEN AND EXAMINED BY ASHLEY BARNETT NP WITH ORDERS TO DISCHARGE PATIENT. ORDER NOTED AND CARRIED OUT
[2018-05-13] MEDS ORDERED: AMLO5TAB9 PO (14:09)
[2018-05-13] MEDS ORDERED: HYDR-4076 PO (14:09)
[2018-05-13 16:00] VITALS: BP 204/101
[2018-05-13 16:27] VITALS: BP 204/102
[2018-05-13] MEDS: hydrALAZINE HCL IV 20 MG VIAL IV PRN (16:27)
--- NOTE | 2018-05-13 16:30 | NUR ---
RN NOTES REPORT GIVEN TO MAGUI FOR CONTINUITY OF CARE. ALL DISCHARGE AND MEDICATION INSTRUCTION GIVEN THROUGH THE REPORT
[2018-05-13] MEDS: HYDROMORPHONE 1 MG/1 ML DISP.SYRIN IV PRN (17:21)
--- NOTE | 2018-05-13 18:00 | NUR ---
RN NOTES PATIENT DISCHARGE TO [facility]. SON AND DAUGHTER AT BEDSIDE. ALL QUESTIONS AND CONCERNS ADDRESSED APPROPRIATELY. MEDICATION AND DISCHARGE INSTRUCTION ALSO GIVEN TO CIRO (SON). PATIENT WAS OFFERED VACCINES BUT REFUSED. BELONGINGS ACCOUNTED FOR BUT SON CLAIMED TO HAVE TAKEN THEM AT HOME, SON SIGNED FORM. IV LINES REMOVED. ID BAND REMOVED. BEDOYA CATHETER KEPT IN PLACED PER . URIEL'S REQUEST. DISCHARGE PACKET HANDED TO AUTOMOTIVE GLASS TECHNICIAN. PATIENT WHEELED OUT OF THE UNIT VIA GURNEY ACCOMPANIED BY 2 EMT, CIRO (SON), DAUGHTER AND A FRIEND
[2018-05-14 08:09] LABS: T3, FREE 1.1 pg/mL (2.0-4.4)
== END 2018-05-13 18:00 | DRG 65 ==
LOC: ER 12:46 → TELE1 16:04 → MEDSG1 05-08 08:40 → TELE1 05-10 17:27 → TELE-TD 05-10 18:43 → TELE1 05-13 14:55
PROVIDERS: ADMIT Hospitalist; ATTEND Hospitalist
PROC: 05H533Z Insertion of Infusion Device into Right Subclavian Vein, Percutaneous Approach (ICD-10-PCS; principal; 2018-05-12)
DX: I63.9 Cerebral infarction, unspecified (principal); G45.9 Transient cerebral ischemic attack, unspecified; E87.1 Hypo-osmolality and hyponatremia; I69.354 Hemiplegia and hemiparesis following cerebral infarction affecting left non-dominant side; N39.0 Urinary tract infection, site not specified; I16.1 Hypertensive emergency; E78.5 Hyperlipidemia, unspecified; F17.210 Nicotine dependence, cigarettes, uncomplicated; E87.6 Hypokalemia; E03.9 Hypothyroidism, unspecified; G89.29 Other chronic pain; Z88.0 Allergy status to penicillin; M54.16 Radiculopathy, lumbar region; B96.20 Unspecified Escherichia coli [E. coli] as the cause of diseases classified elsewhere; B95.1 Streptococcus, group B, as the cause of diseases classified elsewhere; Z91.19 Patient's noncompliance with other medical treatment and regimen; R29.704 NIHSS score 4
CPT/HCPCS: 36415; 70450-TC; 70496-TC; 70498-TC; 71045-TC; 80048-TC; 80053-TC; 80061-TC; 80305; 81000-TC; 82962-TC; 83605-TC; 83735-TC; 83880; 84100-TC; 84439-TC; 84443-TC; 84480; 84481; 84484-TC; 85025-TC; 85610-TC; 85652-TC; 85730-TC; 87040-TC; 87081-TC; 87086-TC; 87186-TC; 92521; 92526; 92611-TC; 93307-TC; 97110-TC; 97530-TC; G0378; J0360; J1170; J1630; J1650; J2060; J2270; J2405; J3480; J3490; J7030; J7050; J7060; Q9967

== ENCOUNTER 2018-06-03 07:37 | Inpatient (IN) | payer BC ==
[~2018-06-03] VITALS: Ht 152.4 cm; Wt 49.4 kg
[~2018-06-03 07:37] MED LIST: AMLO5TAB9 PO; ASPI-869 PO; HYDR-4076 PO; LEVO125T8 PO; QUET25TA PO; SIMV40TA5 PO; SULF1TAB3 PO
--- NOTE | 2018-06-03 07:41 | NUR ---
DR MERAZ AT BEDSIDE
--- NOTE | 2018-06-03 07:53 | NUR ---
JOHNNY FROM [facility], W FOREHEAD LAC S/P GROUND LEVEL FALL, TO ER BED 1, HOOKED TO MONITOR, CHANGED TO GOWN, PROVIDED W WARM BLANKET, AWAITING MD ACOSTA.
[2018-06-03 08:10] LABS: BASOPHILS # (AUTO) 0.1 /CMM (0.0-0.2); BASOPHILS % (AUTO) 0.6 % (0.0-2.0); EOSINOPHILS % (AUTO) 1.1 % (0.0-6.0); HEMATOCRIT 43 % (33-45); LYMPHOCYTES # (AUTO) 1.3 /CMM (0.8-4.8); LYMPHOCYTES % (AUTO) 11.9 % (20.0-44.0); MEAN CORPUSCULAR HGB CONC 35 g/dl (31.0-36.0); MEAN CORPUSCULAR VOLUME 94 fL (82-100); MONOCYTES # (AUTO) 0.9 /CMM (0.1-1.30); MONOCYTES % (AUTO) 8.3 % (2.0-12.0); NEUTROPHILS # (AUTO) 8.3 /CMM (1.8-8.9); NEUTROPHILS % (AUTO) 78.1 % (43.0-81.0); PLATELET COUNT (AUTO) 360 /CMM (150-450); RED BLOOD CELL COUNT(AUTO) 4.62 MIL/uL (4.0-5.2); WHITE BLOOD COUNT (AUTO) 10.7 K/uL (4.3-11.0)
[2018-06-03 08:21] LABS: CALCIUM, SERUM 9.2 mg/dL (8.5-10.1); CARBON DIOXIDE 32 mmol/L (21-32); CHLORIDE 99 mmol/L (98-107); CREATININE 0.6 mg/dL (0.6-1.3); GLUCOSE 96 mg/dL (74-106); POTASSIUM 3.3 mmol/L (3.5-5.1); SODIUM SERUM 136 mmol/L (136-145); UREA NITROGEN, BLOOD 6 mg/dL (7-18)
[2018-06-03] MEDS ORDERED: ACETAMINOPHEN ES 500 MG TABLET ONE (08:51)
[2018-06-03] MEDS ORDERED: ACETAMINOPHEN ES 500 MG TABLET PO ONE (09:00)
[2018-06-03 09:09] LABS: APPEARANCE,URINE Clear (CLEAR); BILIRUBIN,URINE Negative (NEGATIVE); BLOOD, URINE Trace-lysed Ery/uL (NEGATIVE); COLOR,URINE Yellow (YELLOW); KETONES,URINE Negative (NEGATIVE); LEUKOCYTE ESTERASE ,URINE Large (NEGATIVE); NITRITE, URINE Positive (NEGATIVE); PROTEIN,URINE 30 mg/dl (NEGATIVE); UGLUCOSE Negative (NEGATIVE)
[2018-06-03 09:25] LABS: BACTERIA,URINE Many /HPF (None Seen); SQUAMOUS EPITHELIAL CELL,UR Few /HPF (None Seen); WBC,URINE 20-50 /HPF (0-3)
[2018-06-03] MEDS ORDERED: SERT25TA PO (09:31)
[2018-06-03] MEDS ORDERED: TRAM50TA2 PO (09:31)
[2018-06-03] MEDS ORDERED: HYDR-4076 PO (09:42)
[2018-06-03] MEDS ORDERED: ACET-868 PO (09:42)
[2018-06-03] MEDS ORDERED: BISA10SU8 RC (09:42)
[2018-06-03] MEDS ORDERED: NA P133E RC (09:42)
[2018-06-03] MEDS ORDERED: SIMV40TA5 PO (09:42)
[2018-06-03] MEDS ORDERED: SENN-168 PO (09:42)
[2018-06-03] MEDS ORDERED: ASPI-1152 PO (09:42)
[2018-06-03] MEDS ORDERED: ACET-2605 PO (09:42)
[2018-06-03] MEDS ORDERED: MAGN400O6 PO (09:42)
[2018-06-03] MEDS ORDERED: AMLO5TAB9 PO (09:42)
[2018-06-03] MEDS ORDERED: LEVO150T8 PO (09:42)
--- NOTE | 2018-06-03 10:16 | NUR ---
REPORT GIVEN TO MS YOANNA HAWKINS
--- NOTE | 2018-06-03 10:18 | NUR ---
RN NOTE REPORT GIVEN AT 1015 FROM [facility] RN.
--- NOTE | 2018-06-03 10:39 | NUR ---
CARPET REPAIRER BAHMAN MACARIO AT BEDSIDE
--- NOTE | 2018-06-03 11:24 | NUR ---
RUBBISH COLLECTOR NOTES RECEIVED PATIENT VIA GURNEY FROM ER AT 1105. PATIENT ALERT AND ORIENTED X2-3. S/P GROUND LEVEL FALL WITH LEFT FOREHEAD LACERATION 2CMx0.5CM. ON TELE MONITOR SR HR 94. HAS A RIGHT FOREARM #20 SALINE LOCKED. PATIENT VERY NEEDY AND MANIPULATIVE. HAS A HX OF DEPRESSION, CVA WITH LEFT HEMIPLEGIA. WAS GIVEN TYLENOL IN ER. VS 175/85, 18, 100%, 98.2F, 92. NO ORDERS FROM MD YET REGARDING HIGH BP. BED ALARM ON, ON LOWEST POSITION. CALL LIGHT WITHIN REACH. WILL CONTINUE TO MONITOR CLOSELY
[2018-06-03 12:00] VITALS: BP 175/85
[2018-06-03] MEDS ORDERED: HYDROCODONE/APAP 10/325MG 1 EA TABLET PO PRN (12:00)
[2018-06-03] MEDS ORDERED: MAGNESIUM HYDROXIDE 30 ML UDC PO PRN (12:00)
[2018-06-03] MEDS ORDERED: MAG HYDROX/AL HYDROX/SIMETH 30 ML UDC PO PRN (12:00)
[2018-06-03] MEDS ORDERED: ONDANSETRON HCL/PF 4 MG/2 ML VIAL IVP PRN (12:00)
[2018-06-03] MEDS ORDERED: ACETAMINOPHEN 325 MG TABLET PO PRN (12:00)
[2018-06-03] MEDS ORDERED: BISACODYL SUPP (10 MG) 10 MG/SUPP.RECT SUPP.RECT RC PRN (12:00)
--- NOTE | 2018-06-03 12:10 | NUR ---
RN NOTE PATIENT THRASHING HERSELF FROM THE BED. VERY AGITATED AND CONFUSED. CAN ONLY TELL HER NAME AND BDAY. NO ACUTE PAIN. NO SOB. ASKING FOR FOOD. STATES VERY HUNGRY AND HAS NOT EATEN FOR X2 DAYS. ORDERED FOOD FROM KITCHEN. PATIENT YELLING AND KEEPS WANTING TO GET OFF THE BED
[2018-06-03] MEDS ORDERED: POTASSIUM CHLORIDE 20 MEQ POWDER PACKET PO ONE (12:30)
[2018-06-03] MEDS: SERTRALINE HCL 25 MG TABLET PO SCH (12:45)
[2018-06-03] MEDS: LEVOTHYROXINE SODIUM 75 MCG TABLET PO SCH (12:53)
[2018-06-03] MEDS: AMLODIPINE BESYLATE 5 MG TABLET PO SCH (12:53)
[2018-06-03] MEDS: SENNOSIDES 8.6 MG TABLET PO SCH ×2 (12:53→22:00)
[2018-06-03] MEDS: ASPIRIN EC 81 MG TABLET.DR PO SCH (12:54)
[2018-06-03] MEDS: SIMVASTATIN 40 MG TABLET PO SCH ×2 (13:03→22:00)
[2018-06-03] MEDS: hydrALAZINE HCL 25 MG TABLET PO SCH ×4 (13:04→17:00)
--- NOTE | 2018-06-03 13:42 | NUR ---
RN NOTE PATIENT STATES SHE IS IN PAIN. DOES NOT WANT TO SAY WHERE. WAS ABOUT TO GIVE NORCO BUT SHE STATES SHE DOES NOT WANT TO TAKE PAIN MEDICATION, JOSHUA NORCO. WILL RETURN NORCO TO MED ROOM
--- NOTE | 2018-06-03 13:50 | NUR ---
RN NOTE PATIENT REFUSED TO DRINK HER K DUR
[2018-06-03] MEDS: LORAZEPAM INJ 2 MG/ML VIAL IV PRN (14:46)
[2018-06-03 16:00] VITALS: BP_SYST 168; BP_DIAS 96; BP_DIAS 99
[2018-06-03] MEDS: IV NS 0.9% 1,000 ML IV PRN (16:26)
--- NOTE | 2018-06-03 16:54 | NUR ---
RN NOTE PATIENT REFUSED HYDRALAZINE FOR BP. WILL WASTE THE PILL, ALREADY OPENED
--- NOTE | 2018-06-03 17:09 | NUR ---
RN NOTE PATIENT HAS AN ORDER FOR SITTER. SITTER ON BEDSIDE.
--- NOTE | 2018-06-03 19:10 | NUR ---
RN CLOSING NOTE PATIENT HAS A SITTER ON BEDSIDE. REFUSED SOME OF HER MEDS. WILL BE TRANSFERRED TO MED SURG 2 AFTER CHANGE OF SHIFT. WILL ENDORSE TO NOC SHIFT RN.
[2018-06-03 20:00] VITALS: BP 145/91
--- NOTE | 2018-06-03 20:00 | NUR ---
ELISHA RN NOTES RECEIVED PATIENT REPORT FROM AM RN. PATIENT IS IN BED SLEEPING, NOT IN ANY APPARENT DISTRESS. IV LINE IS PATIENT LENA INTACT, NO SOB, NO COMPLAIN OF PAIN AT THIS TIME. ALL SAFETY MEASURES ARE IN PLACE. WILL CONTINUE TO MONITOR PATIENT.
--- NOTE | 2018-06-03 20:41 | NUR ---
RN NOTES PATIENT HAS BEEN TRANSFERRED TO KS-2 ROOM 206-2 FOR POSITION CLASSIFICATION MANAGER. PATIENT IS AWAKE , STABLE, NO SOB, NO PAIN AT THIS TIME. REPORT IS GIVEN TO ROSS TAVAREZ.
--- NOTE | 2018-06-03 20:45 | NUR ---
RN OPENING NOTES RECEIVED BEDSIDE REPORT FROM ELISHA RN. FOUND Pt ASLEEP IN BED, RESPIRATIONS EVEN AND UNLABORED. NO S/S OF ACUTE DISTRESS OR SOB NOTED. PER REPORT Pt IS A/OX2, VERBAL, ABLE TO MAKE NEEDS KNOWN, BUT IS FORGETFUL. IV ACCESS ON RAC #20G, IVF NS@75ML/HR. SAFETY MEASURES IN PLACE. BED LOW, LOCKED, HOB ELEVATED, SIDE RAILS UP, & BEDSIDE TABLE WITHIN REACH. BED ALARM ON. SITTER AT BEDSIDE. WILL CONTINUE TO MONITOR Pt's CONDITION AND SAFETY THROUGHOUT THE NIGHT.
--- NOTE | 2018-06-03 22:47 | NUR ---
RN NOTES Pt REFUSED TO TAKE SCHEDULED NIGHT MEDS (SENOKOT & ZOCOR)
[2018-06-04] MEDS: HYDROCODONE/APAP 5/325MG 1 EACH TABLET PO PRN ×3 (01:14→23:20)
[2018-06-04] MEDS: TEMAZEPAM 15 MG CAPSULE PO PRN ×2 (02:00→22:12)
--- NOTE | 2018-06-04 06:50 | NUR ---
RN CLOSING NOTES NO SIGNIFICANT CHANGES IN Pt's CONDITION. Pt REMAINS STABLE AT THIS TIME. NO S/S OF ACUTE DISTRESS OR SOB NOTED DURING THE NIGHT. ALL NEEDS MET AND ATTENDED TO. Pt IS RESTING COMFORTABLY IN BED. RESPIRATIONS EVEN AND UNLABORED. SAFETY MEASURES IN PLACE. WILL ENDORSE TO DAYSHIFT RN FOR Pt's SLIME.
--- NOTE | 2018-06-04 08:05 | NUR ---
RN OPENING NOTES PT AWAKE AND RESTING IN BED. 1:1 SITTER AT BEDSIDE. PT HAS A RIGHT AC #20 RUNNING NS @75 ML/HR. SAFETY PRECAUTIONS IN PLACE, BED IN LOWEST LOCKED POSITION, X2 SIDE RAILS UP AND CALL LIGHT WITHIN REACH. WILL CONTINUE TO MONITOR.
[2018-06-04] MEDS: ASPIRIN EC 81 MG TABLET.DR PO SCH (08:54)
[2018-06-04] MEDS: SERTRALINE HCL 25 MG TABLET PO SCH (08:55)
[2018-06-04] MEDS: AMLODIPINE BESYLATE 5 MG TABLET PO SCH (08:57)
[2018-06-04] MEDS: hydrALAZINE HCL 25 MG TABLET PO SCH ×3 (09:00→16:29)
--- NOTE | 2018-06-04 09:00 | NUR ---
RN NOTES INFORMED PHARMACY OF MISSING MEDICATIONS. PER PHARMACY, WILL RESTOCK. WILL CONTINUE TO FOLLOW UP.
[2018-06-04 10:27] VITALS: BP 146/90
[2018-06-04 10:42] LABS: BASOPHILS # (AUTO) 0.1 /CMM (0.0-0.2); BASOPHILS % (AUTO) 0.9 % (0.0-2.0); EOSINOPHILS % (AUTO) 0.9 % (0.0-6.0); HEMATOCRIT 40 % (33-45); LYMPHOCYTES # (AUTO) 1.5 /CMM (0.8-4.8); LYMPHOCYTES % (AUTO) 16.4 % (20.0-44.0); MEAN CORPUSCULAR HGB CONC 35 g/dl (31.0-36.0); MEAN CORPUSCULAR VOLUME 93 fL (82-100); MONOCYTES # (AUTO) 0.8 /CMM (0.1-1.30); MONOCYTES % (AUTO) 8.5 % (2.0-12.0); NEUTROPHILS # (AUTO) 6.8 /CMM (1.8-8.9); NEUTROPHILS % (AUTO) 73.3 % (43.0-81.0); PLATELET COUNT (AUTO) 344 /CMM (150-450); RED BLOOD CELL COUNT(AUTO) 4.33 MIL/uL (4.0-5.2); WHITE BLOOD COUNT (AUTO) 9.2 K/uL (4.3-11.0)
--- NOTE | 2018-06-04 10:52 | NUR ---
RN NOTES SECOND PHONE CALL. INFORMED PHARMACY OF MISSING MEDICATIONS. PER PHARMACY, WILL RESTOCK. WILL CONTINUE TO FOLLOW UP.
[2018-06-04 10:55] LABS: CALCIUM, SERUM 9.2 mg/dL (8.5-10.1); CREATININE 0.7 mg/dL (0.6-1.3); MAGNESIUM 2.1 mg/dL (1.8-2.4); PHOSPHORUS 3.3 mg/dL (2.5-4.9); POTASSIUM 2.9 mmol/L (3.5-5.1)
[2018-06-04 11:05] LABS: THYROID STIMULATING HORMONE 15.164 uIU/mL (0.358-3.74)
[2018-06-04] MEDS: LEVOTHYROXINE SODIUM 75 MCG TABLET PO SCH (13:55)
--- NOTE | 2018-06-04 14:38 | NUR ---
RN NOTES ALL MEDICATIONS GIVEN THEY WERE MADE AVAILABLE FROM PHARMACY.
[2018-06-04] MEDS: POTASSIUM CL. PREMIX PERIPHER. 50 ML IV SCH ×4 (16:28→20:43)
--- NOTE | 2018-06-04 18:14 | NUR ---
RN NOTES PATIENT'S IV SITE BEGAN TO LEAK. STOPPED INFUSION OF POTASSIUM. INSERTED NEW IV SITE AND RESUMED POTASSIUM INFUSION. WILL ENDORSE TO NAIL PROFESSIONAL NURSE TO CONTINUE INFUSIONS.
--- NOTE | 2018-06-04 18:46 | NUR ---
RN CLOSING NOTES PT AWAKE AND RESTING IN BED. 1:1 SITTER AT BEDSIDE. PT HAS A RIGHT AC #20 RUNNING POTASSIUM. SAFETY PRECAUTIONS IN PLACE, BED IN LOWEST LOCKED POSITION, X2 SIDE RAILS UP AND CALL LIGHT WITHIN REACH. WILL ENDORSE TO RN MANAGED CARE NURSE FOR CONTINUITY OF CARE.
--- NOTE | 2018-06-04 19:47 | NUR ---
RECIEVED ALERT AND ORIENTATED . IN BED. EATING DINNER. K+ IN INFUSING BAG #2. AM K+ WAS 2.9 THIS AM. TALKATIVE ABOUT HER HEALTH AND HER DINNER AND HERSELF IN GENERAL. REMINDED HER NOT TO GET OOB D/T THE POOR STRENGTH IN HER LEGS. CALL LIGHT REVIEWED WITH THE PATIENT.
[2018-06-04 20:33] VITALS: BP_SYST 160; BP_SYST 168; BP_DIAS 90
[2018-06-04] MEDS: SIMVASTATIN 40 MG TABLET PO SCH (20:44)
[2018-06-04] MEDS: SENNOSIDES 8.6 MG TABLET PO SCH (20:44)
[2018-06-05] MEDS: IV NS 0.9% 1,000 ML IV PRN ×2 (01:41→21:42)
[2018-06-05] MEDS: LORAZEPAM INJ 2 MG/ML VIAL IV PRN ×2 (02:50→10:59)
--- NOTE | 2018-06-05 03:19 | NUR ---
AGITATED STATING SHE WANTS TO GET OOB SHE WANTS TO GO TO THE BATHROOM. EXPLAINED TO HER SHE IS UNABLE TO STAND SHE WAS EVALUATED BY PT, NOT SAFE TO GET UP. PLACED ON BEDPAN. MOM GIVEN EARLIER D/T HER STATING SHE WAS CONSTIPATED. IN E8NUTEPCE OF URINE KEPT CLEAN A ND DRY. SHE REMOVED HER IV ACCIDENTLY RESTARTED W/O INCIDENCE
--- NOTE | 2018-06-05 05:45 | NUR ---
AWAKE THE COMPLETE NIGHT. MEDICATED WITH RESTORIL @ 22:12 AND NOT EFFECTIVE C/0 NEED TO GO TO THE BATHROOM TO GO POOP" EXPLAINED TO HER WE COULD NOT TAKE HER TO THE BATHROOM OR EVEN USE THE BSC REASON BE SHE HAS NO STRENGTH IN HER LEGS, PT ON 06/04 DIDN'T WIL HER OOB D/T WEAKNESS IN THE LEGS. PLACED HER ON A BEDPAN THROUGH OUT THE NIGHT ONLY TO GET SMALL AMOUNT LIQUID BROWN RESULT WITH THE SUPP GIVEN AND MOM BOTH ARE ORDERED FOR CONSTIPATION AND WERE INEFFECTIVE TO PRODUCE STOOL. RESTLESS IN HER BED. NORCO GIVEN FOR HER C/O PAIN IN HER BACK WHICH WAS EFFECTIVE SHE STATES. ATIVAN 1 MG GIVEN ORDERED AND PATIENT STILL UNABLE TO SLEEP. NOTED SHE WOULD CLOSE HER EYES FOR MOMENTS AT A TIME ONLY TO OPEN HER EYES AND START TO TALK ABOUT HER NEED TO GO TO THE BATHROOM. HER LEFT SIDE IS HEMIPLEGIC AND SAFETY IS AN ISSUE TO GET HER OOB. TRIED TO MAKE HER UNDERSTAND THIS UNSUCCESSFULLY.
--- NOTE | 2018-06-05 07:00 | NUR ---
RECEIVED PATIENT AWAKE IN BED , AGITATED AND CONFUSED. SITTER AT BEDSIDE. SAFETY PRECAUTIONS OBSERVED, IV LINE INTACT AND NS AT 75ML/HR. WILL CONTINUE TO MONITOR
[2018-06-05 08:00] VITALS: BP 172/81
[2018-06-05] MEDS: ASPIRIN EC 81 MG TABLET.DR PO SCH (08:11)
[2018-06-05] MEDS: SERTRALINE HCL 25 MG TABLET PO SCH (08:11)
[2018-06-05] MEDS: LEVOTHYROXINE SODIUM 75 MCG TABLET PO SCH (08:11)
[2018-06-05] MEDS: hydrALAZINE HCL 25 MG TABLET PO SCH ×3 (08:12→17:14)
[2018-06-05] MEDS: AMLODIPINE BESYLATE 5 MG TABLET PO SCH (08:12)
[2018-06-05] MEDS ORDERED: CIPR-262 PO (13:10)
--- NOTE | 2018-06-05 15:57 | NUR ---
REPORT CALLED TO SOHAIL HAWKINS ( [facility]).
[2018-06-05 16:00] VITALS: BP 185/98
--- NOTE | 2018-06-05 17:00 | NUR ---
PATIENT WILL STAY OVERNIGHT DUE TO FACILITY DID NOT RECEIVED AUTHORIZATION. DAVID AND ANIBAL AWARE.
--- NOTE | 2018-06-05 19:24 | NUR ---
PATIENT IN BED, SITTER AT BEDSIDE. PATIENT REMAIN VERY CONFUSED. ALL NEEDS ATTENDED . SAFETY PRECAUTIONS IN PLACE. WILL ENDORSE TO NEXT SHIFT FOR [place].
--- NOTE | 2018-06-05 19:33 | NUR ---
MS RN RECEIVE PT IN BED A/O X 2, SLEEPING, RESPIRATIONS EVEN AND UNLABORED, NO SOB NOTED, NO DISTRESS, SAFETY MEASURES IN PLACE. WILL CONTINUE TO MONITOR.
[2018-06-05 20:00] VITALS: BP 126/69
[2018-06-05 20:32] VITALS: BP 126/69
[2018-06-05] MEDS ORDERED: TEMAZEPAM 7.5 MG CAPSULE PO PRN (21:00)
[2018-06-05] MEDS: SENNOSIDES 8.6 MG TABLET PO SCH (21:26)
[2018-06-05] MEDS: SIMVASTATIN 40 MG TABLET PO SCH (21:27)
--- NOTE | 2018-06-06 06:08 | NUR ---
MS RN ASLEEP AND EASILY AWAKEN, SLEPT WELL THROUGHOUT THE NIGHT 9 HOURS. RESPIRATION EVEN AND UNLABORED, STABLE AND NOT IN DISTRESS, AM CARE RENDERED, 1:1 SITTER AT BEDSIDE, AFEBRILE. NEEDS ATTENDED AND ANTICIPATED, KEPT CLEAN AND DRY AND COMFORTABLE. NURSING CARE RENDERED, GOOD SKIN CARE PROVIDED. REPOSITIONED PT EVERY 2 HOURS AND PRN. SAFETY MEASURES AT ALL TIMES. ENDORSE TO THE NEXT SHIFT.
[2018-06-06 07:04] LABS: BASOPHILS # (AUTO) 0.1 /CMM (0.0-0.2); BASOPHILS % (AUTO) 0.4 % (0.0-2.0); EOSINOPHILS % (AUTO) 0.5 % (0.0-6.0); HEMATOCRIT 41 % (33-45); HEMOGLOBIN 13.7 g/dL (11.5-14.8); LYMPHOCYTES # (AUTO) 1.1 /CMM (0.8-4.8); LYMPHOCYTES % (AUTO) 6.8 % (20.0-44.0); MEAN CORPUSCULAR HGB CONC 33 g/dl (31.0-36.0); MEAN CORPUSCULAR VOLUME 94 fL (82-100); MONOCYTES # (AUTO) 1.3 /CMM (0.1-1.30); MONOCYTES % (AUTO) 8.2 % (2.0-12.0); NEUTROPHILS # (AUTO) 13.7 /CMM (1.8-8.9); NEUTROPHILS % (AUTO) 84.1 % (43.0-81.0); PLATELET COUNT (AUTO) 339 /CMM (150-450); RED BLOOD CELL COUNT(AUTO) 4.38 MIL/uL (4.0-5.2); WHITE BLOOD COUNT (AUTO) 16.3 K/uL (4.3-11.0)
[2018-06-06 07:08] LABS: CALCIUM, SERUM 8.9 mg/dL (8.5-10.1); CREATININE 0.5 mg/dL (0.6-1.3); MAGNESIUM 2.2 mg/dL (1.8-2.4); PHOSPHORUS 3.5 mg/dL (2.5-4.9); POTASSIUM 3.4 mmol/L (3.5-5.1)
--- NOTE | 2018-06-06 07:20 | NUR ---
MS/RN OPENING NOTE THE PATIENT ALERT AND ORIENTED X1. REDIRECTION AND REORIENTATION PROVIDED. ABLE TO MAKE NEEDS KNOWN VERBALLY. IN ROOM AIR AND DENIES SOB. RESPIRATION REGULAR AND UNLABORED. DENIES PAIN. RAC G 22 PATENT AND NORMAL SALINE INFUSING AT 75ML/HR AND NO S/S INFILTRATION NOTED. BED LOW AND LOCKED. SIDE RAILS UP X3. SITTER AT THE BEDSIDE. WILL CONTINUE TO MONITOR.
[2018-06-06 08:00] VITALS: BP 168/100
[2018-06-06] MEDS: SERTRALINE HCL 25 MG TABLET PO SCH (08:45)
[2018-06-06] MEDS: hydrALAZINE HCL 25 MG TABLET PO SCH ×3 (08:46→16:11)
[2018-06-06] MEDS: LEVOTHYROXINE SODIUM 75 MCG TABLET PO SCH (08:46)
[2018-06-06] MEDS: ASPIRIN EC 81 MG TABLET.DR PO SCH (08:46)
[2018-06-06] MEDS: AMLODIPINE BESYLATE 5 MG TABLET PO SCH (08:46)
[2018-06-06] MEDS: HYDROCODONE/APAP 5/325MG 1 EACH TABLET PO PRN ×2 (09:04→21:51)
[2018-06-06 09:30] VITALS: BP 142/75
[2018-06-06] MEDS ORDERED: POTASSIUM CHLORIDE 20 MEQ TAB.PRT.SR PO SCH (11:00)
[2018-06-06 16:06] VITALS: BP 149/68
[2018-06-06] MEDS: IV NS 0.9% 1,000 ML IV PRN (16:12)
[2018-06-06 16:15] VITALS: BP 149/68
--- NOTE | 2018-06-06 18:10 | NUR ---
MS/RN NOTE THE PATIENT IS SEEN BY DR PEMBERTON WITH NEW ORDER TO DISCONTINUE NORCO 10/325 MG Q4HR PRN. NOTED AND CARRIED OUT.
--- NOTE | 2018-06-06 18:50 | NUR ---
MS/RN NOTE THE PATIENT ALERT AND ORIENTED X2. IN ROOM AIR AND DENIES SOB. SATURATION IN ROOM AIR AT 95%. RESPIRATION REGULAR AND UNLABORED. DENIES PAIN. THE PATIENT IN NO APPARENT DISTRESS. RAC G 22 PATENT AND NORMAL SALINE INFUSING AT 75ML/HR AND NO S/S INFILTRATION NOTED. THE PATIENT NON-COMPLIANT WITH IV FLUIDS AND ASKS TO DISCONNECT FROM TIME TO TIME. BED LOW AND LOCKED. SIDE RAILS UP X3. SITTER AT THE BEDSIDE. CALL LIGHT WITHIN REACH. WILL ENDORSE TO STEAM FITTER.
--- NOTE | 2018-06-06 19:55 | NUR ---
RN OPENING NOTES RECEIVED REPORT FROM DAYSHIFT RN REJI. FOUND Pt AWAKE, RESTING IN BED, WATCHING TV. NO S/S OF ACUTE DISTRESS OR SOB NOTED. RESPIRATIONS EVEN AND UNLABORED. SITTER AT BEDSIDE. Pt IS A/OX2, VERBAL AND ABLE TO COMMUNICATE, BUT IS VERY CONFUSED. Pt IS A FALL RISK. IV ACCESS ON RFA #22G. SAFETY MEASURES IN PLACE. BED LOW, LOCKED, HOB ELEVATED, SIDE RAILS UP. BED ALARM ON. WILL CONTINUE TO MONITOR Pt's CONDITION AND SAFETY THROUGHOUT THE NIGHT.
[2018-06-06] MEDS ORDERED: CIPROFLOXACIN HCL 250 MG TABLET PO SCH (21:00)
[2018-06-06] MEDS: SENNOSIDES 8.6 MG TABLET PO SCH (21:51)
[2018-06-06] MEDS: SIMVASTATIN 40 MG TABLET PO SCH (21:51)
[2018-06-06] MEDS ORDERED: CIPROFLOXACIN HCL 500 MG TABLET ONE (22:04)
[2018-06-06 22:15] VITALS: BP 159/88
--- NOTE | 2018-06-06 22:34 | NUR ---
RN NOTES CIPRO MED IS OUT OF STOCK IN [facility]. HAD TO GO TO [facility] TO OVERRIDE CIPRO MED. ONLY CIPRO 500MG 1 TAB WAS AVAILABLE FOR OVERRIDE.
--- NOTE | 2018-06-06 22:36 | NUR ---
RN NOTES ALL ORDERED MEDS GIVEN.
--- NOTE | 2018-06-06 22:48 | NUR ---
RN NOTES WILL TRANSFER TO Pt TO [facility] 119-2. WILL GIVE BEDSIDE REPORT TO [facility] RN UPON TRANSFER.
--- NOTE | 2018-06-06 23:18 | NUR ---
TECHNICAL SERVICE REPRESENTATIVE NOTES Pt WAS SAFELY TRANSFERRED TO [facility]OM 119-2. WITH SITTER. BEDSIDE REPORT GIVEN TO [facility] RN FRANK. ALL SCHEDULED NIGHT MEDS GIVEN. NO S/S OF ACUTE DISTRESS OR SOB NOTED DURING TRANSFER. RESPIRATIONS EVEN AND UNLABORED.
--- NOTE | 2018-06-06 23:38 | NUR ---
[facility]/CHICKEN RAISER RECEIVED REPORT FROM MED/SURG NURSE TELMA. PT CAME WITH SITTER. SEE FLOWSHEET FOR ASSESSMENT AND ALL SKIN ISSUES THAT ADDRESSED ALONG WITH EACH OF THESE INTERVENTIONS. SITTER IN ROOM. WILL CONTINUE TO MONITOR THIS PT.
--- NOTE | 2018-06-07 01:44 | NUR ---
[facility]/GAS OPERATION MANAGER PT APPEARS TO BE RESTING COMFORTABLE WITH PERIODS OF CONFUSION, SITTER IS NEAR BY. WILL CONTINUE TO MONITOR THIS PT.
[2018-06-07] MEDS: HYDROCODONE/APAP 5/325MG 1 EACH TABLET PO PRN ×4 (03:00→20:09)
--- NOTE | 2018-06-07 03:15 | NUR ---
[facility]/FIBRE COMPOSITE TECHNICIAN PT COMPLAINED ABOUT PAIN TO GENERALIZED AREA OF BODY, NORCO 1 TAB GIVEN FOR THIS. WILL CONTINUE TO MONITOR THIS PT'S PAIN LEVEL. NO ACUTE DISTRESS SEEN AT THIS TIME. SITTER IS AT BEDSIDE WATCHING OVER PT.
[2018-06-07 05:28] VITALS: BP 152/94
[2018-06-07] MEDS: LEVOTHYROXINE SODIUM 75 MCG TABLET PO SCH (05:35)
--- NOTE | 2018-06-07 06:33 | NUR ---
[facility]/DATA STORAGE SPECIALIST BED SCALE IS BROKEN, UNABLE TO GET DAILY WEIGHT.
--- NOTE | 2018-06-07 06:45 | NUR ---
[facility]/ROUNDHOUSE FIRER/FIREMAN PT INTAKE IS VERY GOOD, PT IS REFUSING THE NEW BAG OF IVF. WILL PASS ON TO DAY SHIFT TO HAVE THIS HEPLOCK.
--- NOTE | 2018-06-07 06:47 | NUR ---
[facility]/LADLE POURER PT COMPLAINED ABOUT PAIN TO GENERALIZED AREA OF BODY, NORCO 1 TAB GIVEN FOR THIS. WILL CONTINUE TO MONITOR THIS PT'S PAIN LEVEL. NO ACUTE DISTRESS SEEN AT THIS TIME. SITTER IS AT BEDSIDE WATCHING OVER PT.
--- NOTE | 2018-06-07 07:00 | NUR ---
MS RN INITIAL NOTES RECEIVED PT IN BED, ASLEEP INTERMITTENTLY. SITTER AT BEDSIDE. NO C/O OF PAIN/DISCOMFORT. PT IS ON ROOM AIR WITH NONLABORED BREATHING. PT IS A/OX2 WITH PERIODS OF CONFUSION. R WRIST #22 HL. PER PM NURSE, PT REFUSED IV FLUIDS. BED IN LOCKED/LOWEST POSITION. CALL LIGHT IN REACH. WILL CONT TO MONITOR.
[2018-06-07 08:00] VITALS: BP 149/90
[2018-06-07] MEDS: AMLODIPINE BESYLATE 5 MG TABLET PO SCH (09:09)
[2018-06-07] MEDS: SERTRALINE HCL 25 MG TABLET PO SCH (09:10)
[2018-06-07] MEDS: hydrALAZINE HCL 25 MG TABLET PO SCH ×3 (09:10→16:46)
[2018-06-07] MEDS: ASPIRIN EC 81 MG TABLET.DR PO SCH (09:10)
[2018-06-07] MEDS: CIPROFLOXACIN HCL 500 MG TABLET PO SCH ×2 (09:47→21:04)
[2018-06-07] MEDS: LORAZEPAM INJ 2 MG/ML VIAL IV PRN (15:19)
[2018-06-07 16:00] VITALS: BP 162/94
--- NOTE | 2018-06-07 19:25 | NUR ---
MS RN END OF SHIFT NOTES REPORTED TRANSFER TO [facility], ARACELI RN. PT WAITING FOR AMBULANCE PICKUP. IV REMOVED, MED RECON LIST/DISCHARGE INSTRUCTIONS IN PACKET. TRIED TO CONTACT SON, NO VM. PT NOT IN DISTRESS AT THIS TIME. SITTER AT BEDSIDE.
[2018-06-07 20:00] VITALS: BP 163/97
--- NOTE | 2018-06-07 20:00 | NUR ---
RN INITIAL NOTES RECEIVED PT IN BED, A&OX2 WITH PERIODS OF CONFUSION. PT C/O OF PAIN/DISCOMFORT. PT IS ON ROOM AIR WITH NONLABORED BREATHING. R WRIST #22 HL. BED IN LOCKED/LOWEST POSITION. CALL LIGHT IN REACH. WILL CONT TO MONITOR.
[2018-06-07] MEDS: SIMVASTATIN 40 MG TABLET PO SCH (21:04)
[2018-06-07] MEDS: SENNOSIDES 8.6 MG TABLET PO SCH (21:05)
--- NOTE | 2018-06-07 23:10 | NUR ---
TAP GRINDER NOTES PATIENT WAS PICKED UP BY AMBULANCE TO BE TRANSFER TO [facility]. REPORT WAS GIVEN TO ARACELI HAWKINS. IV WAS REMOVED BY RN FROM AM SHIFT. MED RECON LIST/DISCHARGE INSTRUCTIONS IN PACKET COMPLETED. PT VERBALIZE UNDERSTANDING OF DISCHARGE INSTRUCTIONS. PT WAS STABLE AND NOT IN DISTRESS AT TIME OF DISCHARGE.
== END 2018-06-07 23:39 | DRG 914 ==
LOC: ER 07:44 → TELE1 11:01 → MEDSG1 16:19 → MEDSG2 20:14 → MEDSG1 06-06 23:11
PROVIDERS: ADMIT Nurse Practitioner Acute Care; ATTEND Hospitalist
DX: S09.90XA Unspecified injury of head, initial encounter (principal); N39.0 Urinary tract infection, site not specified; I69.354 Hemiplegia and hemiparesis following cerebral infarction affecting left non-dominant side; S01.81XA Laceration without foreign body of other part of head, initial encounter; E87.6 Hypokalemia; I10 Essential (primary) hypertension; E03.9 Hypothyroidism, unspecified; E78.5 Hyperlipidemia, unspecified; W18.30XA Fall on same level, unspecified, initial encounter; Y92.89 Other specified places as the place of occurrence of the external cause; M54.16 Radiculopathy, lumbar region; M54.2 Cervicalgia; G89.29 Other chronic pain; F32.9 Major depressive disorder, single episode, unspecified; F17.210 Nicotine dependence, cigarettes, uncomplicated; Z88.0 Allergy status to penicillin; B96.20 Unspecified Escherichia coli [E. coli] as the cause of diseases classified elsewhere
CPT/HCPCS: 36415; 70450-TC; 71045-TC; 72125-TC; 72128-TC; 72131-TC; 80048-TC; 81000-TC; 83735-TC; 84100-TC; 84439-TC; 84443-TC; 84484-TC; 85025-TC; 85730-TC; 87081-TC; 87086-TC; 87186-TC; 97110-TC; 97112-TC; 97530-TC; A6402; A6403; G0378; J2060; J3480; J7030